=== PATIENT | male | born 1930 | race Caucasian/White ===

== ENCOUNTER 2019-05-15 05:18 | Day surgery (SDC) | payer MEDICARE ==
[2019-05-15] MEDS ORDERED: DEXAMETHASONE 4 MG/ML 1ML VIAL IVP ONE (05:19)
[2019-05-15] MEDS ORDERED: FENTANYL PF 100MCG/2ML VIAL IV ONE (05:19)
[2019-05-15] MEDS ORDERED: ROPIVACAINE HCL (NAROPIN) /PF 5MG/ML 20ML VIAL IV ONE (05:19)
[2019-05-15] MEDS ORDERED: MIDAZOLAM HCL 2MG/2ML VIAL IV ONE (05:19)
[2019-05-15] MEDS ORDERED: PROPOFOL 10 MG/ML VIAL IV ONE (05:19)
[2019-05-15] MEDS ORDERED: LIDOCAINE 2% MDV (20MG/ML) 20ML VIAL IV ONE (05:19)
[2019-05-15] MEDS ORDERED: RINGERS SOLUTION,LACTATED 1,000 ML IV ONE (06:00)
[2019-05-15] MEDS ORDERED: ACETAMINOPHEN 1,000 MG/100 ML BTL IVPB ONE (06:00)
[2019-05-15] MEDS ORDERED: CEFAZOLIN 2 Gram 2 GM/50 ML BAG IVPB ONE (06:00)
[2019-05-15] MEDS ORDERED: BUPIVACAINE 0.25% W/EPI MPF 30ML VIAL SQ ONE (07:54)
--- NOTE | 2019-05-16 13:00 | Operative Note ---
DATE OF SURGERY: 05/15/2019 SURGEON: Kemal Velazquez DO PREOPERATIVE DIAGNOSES: 1. Olecranon bursitis of the right elbow. 2. Calcific tendonitis of the triceps tendon, right elbow. POSTOPERATIVE DIAGNOSES: 1. Olecranon bursitis of the right elbow. 2. Calcific tendonitis of the triceps tendon, right elbow. OPERATION: 1. Excision of olecranon bursa, right elbow. 2. Excision of calcific mass right triceps tendon. DESCRIPTION OF PROCEDURE: This 89-year-old male was taken to the operating room and placed in the supine position on the operating room table. An axillary block anesthetic was administered and the right upper extremity was elevated. It was prepped with Hibiclens and draped in the usual sterile fashion. It was exsanguinated and the tourniquet inflated to 250 mmHg. A lazy S-type incision was made over the olecranon bursa taking care to protect the ulnar nerve during the course of the surgery. The olecranon bursa was easily identified and was quite tense. It was incised and some debris was removed from the internal aspect of the olecranon bursa. Then, with the pressure decreased, it was much easier to develop tissue planes. Using blunt and sharp dissection, we were able to dissect the olecranon bursa off of the proximal ulna. The mass was then removed and a portion was sent for pathology. We also noticed the calcific mass as seen on x-ray thought originally to be contained within the olecranon bursa; however, it was not and it was contained within the triceps tendon. This was very superficial close to the posterior margin of the tendon. Therefore, we were able to easily detach some of the triceps tendon fibers from the anterior surface of this bony mass. There were none on the posterior surface because it was right adjacent to the bursa. This was then easily removed and sent with the olecranon bursa. There was no repair to the tendon needed. The wound was irrigated and hemostasis was obtained with the electrocautery. Then the subcutaneous tissue closed with 3-0 Vicryl and the skin closed with running 4-0 nylon suture. Sterile dressings were applied and the patient taken to the recovery room in satisfactory condition. GROSS PATHOLOGY: This patient demonstrated olecranon bursitis with a chronic- appearing olecranon bursa which was very thick walled. A small hole which continued to drain material. There were clumps of tissue contained within the bursa and it was not full of fluid. We did do an ellipse of the skin edges at the closure to get healthy margins and skin so as this would heal completely and not have a draining sinus. MTDD
== END 2019-05-15 08:45 | disposition home or self-care (01) ==
LOC: SUR 05:18
PROVIDERS: ATTEND Orthopaedic Surgery
DX: M70.21 Olecranon bursitis, right elbow (principal); M65.221 Calcific tendinitis, right upper arm; I10 Essential (primary) hypertension
CPT/HCPCS: 76942; J7120